=== PATIENT | female | born 1985 | race Caucasian/White ===

== ENCOUNTER 2021-03-25 13:16 | Observation (INO) | payer BC ==
[~2021-03-25] VITALS: Ht 160 cm; Wt 80.7 kg
[2021-03-25 13:17] VITALS: BP 121/79
== END 2021-03-25 17:10 | disposition home or self-care (01) ==
LOC: EDH 13:16 → LDH 13:17
PROVIDERS: ADMIT Specialist; ATTEND Specialist
DX: O42.92 Full-term premature rupture of membranes, unspecified as to length of time between rupture and onset of labor (principal); O62.9 Abnormality of forces of labor, unspecified; Z3A.36 36 weeks gestation of pregnancy
CPT/HCPCS: 59025; 76805; G0378 ×3

== ENCOUNTER 2021-04-07 03:52 | Inpatient (IN) | payer BC ==
[~2021-04-07] VITALS: Ht 160 cm; Wt 87.1 kg
[2021-04-07 04:32] LABS: APPEARANCE,URINE Cloudy (CLEAR); BILIRUBIN,URINE Negative (NEGATIVE); COLOR,URINE Yellow (YELLOW); GLUCOSE, URINE (UA) Negative (NEGATIVE); KETONES,URINE Negative (NEGATIVE); LEUKOCYTE ESTERASE ,URINE Moderate (NEGATIVE); NITRATE,URINE Negative (NEGATIVE); OCCULT BLOOD,URINE Trace (NEGATIVE); PH,URINE 7.5 (5.0-8.0); PROTEIN,URINE Negative (NEGATIVE)
[2021-04-07 04:50] LABS: BACTERIA,URINE None Seen /HPF (None Seen); RBC,URINE 0-1 /HPF (0-1)
[2021-04-07 04:51] LABS: AMORPHOUS SEDIMENT,UR Few /LPF (None Seen); SQUAMOUS EPITHELIAL CELL,UR Few /HPF (0-2)
[2021-04-07] MEDS ORDERED: OXYTOCIN-LR 20 UNITS/1000 ML 1,000 ML IV SCH ×3 (05:00→15:30)
[2021-04-07] MEDS ORDERED: LACTATED RINGERS 500 ML 500 ML IV PRN (05:00)
[2021-04-07] MEDS ORDERED: NALOXONE HCL 0.4 MG/1 ML ML IV PRN (05:00)
[2021-04-07] MEDS ORDERED: EPHEDRINE SULFATE 50 MG/ML AMPULE IVP PRN (05:00)
[2021-04-07] MEDS ORDERED: AMPICILLIN 2GM+NS 100ML 100 ML IV SCH (05:00)
[2021-04-07] MEDS ORDERED: LACTATED RINGERS 1000ML 1,000 ML IV PRN (05:00)
[2021-04-07 05:16] LABS: HEMATOCRIT 30.4 % (36-48); MEAN CORPUSCULAR HGB CONC 32.6 g/dL (32.0-36.0); MEAN CORPUSCULAR VOLUME 85.9 fL (79-99); RED BLOOD CELL COUNT(AUTO) 3.54 MIL/uL (4.00-5.50); RED CELL DISTRIBUTION WIDTH 13.3 % (11.0-15.5); WHITE BLOOD COUNT (AUTO) 11.6 K/uL (4.8-10.8)
[2021-04-07] MEDS: AMPICILLIN 1GM+NS 50ML 50 ML IV SCH ×2 (09:30→21:00)
[2021-04-07] MEDS ORDERED: ACETAMINOPHEN WITH CODEINE 1 TAB TAB PO PRN (15:30)
[2021-04-07] MEDS ORDERED: LANOLIN 30GM OINTMENT TP PRN (15:30)
[2021-04-07] MEDS ORDERED: BENZOCAINE/LANOLIN/ALOE VERA 60 ML AEROSOL TP PRN (15:30)
[2021-04-07] MEDS ORDERED: WITCH HAZEL 1 PAD TP PRN (15:30)
[2021-04-07] MEDS ORDERED: MEASLES/MUMPS/RUBELLA VACCINE, LIVE 0.5 ML/VIAL SQ PRN (15:30)
[2021-04-07] MEDS ORDERED: DIPH,PERTUSS(ACELL),TET VAC/PF 0.5 ML VIAL IM PRN (15:30)
[2021-04-07] MEDS ORDERED: ACETAMINOPHEN 325 MG TAB PO PRN (15:30)
[2021-04-07] MEDS: IBUPROFEN 600 MG TABLET PO PRN (16:44)
[2021-04-07 18:25] VITALS: BP 113/69
[2021-04-07 19:18] VITALS: BP 108/71
[2021-04-07] MEDS ORDERED: PNV1TABL57 PO (20:11)
[2021-04-07] MEDS ORDERED: SERT-440 PO (20:11)
[2021-04-07] MEDS: DOCUSATE SODIUM 100 MG CAP PO SCH (20:52)
[2021-04-07 23:00] VITALS: BP 121/65
[2021-04-08] MEDS: AMPICILLIN 1GM+NS 50ML 50 ML IV SCH ×2 (01:00→01:14)
[2021-04-08 03:20] VITALS: BP 110/65
[2021-04-08 08:00] VITALS: BP 124/79
[2021-04-08] MEDS: DOCUSATE SODIUM 100 MG CAP PO SCH (09:13)
[2021-04-08] MEDS: IBUPROFEN 600 MG TABLET PO PRN (09:14)
[2021-04-09 02:08] LABS: HEPATITIS Bs ANTIGEN SCREEN P Negative (Negative)
== END 2021-04-08 14:50 | disposition home or self-care (01) | DRG 807 ==
LOC: EDH 03:52 → LDH 04:04 → OBSVTOIN 04:04 → WSH 18:06
PROVIDERS: ADMIT Specialist; ATTEND Specialist
PROC: 10E0XZZ Delivery of Products of Conception, External Approach (ICD-10-PCS; principal; 2021-04-07)
PROC: 0HQ9XZZ Repair Perineum Skin, External Approach (ICD-10-PCS; 2021-04-07)
PROC: 3E0R3BZ Introduction of Anesthetic Agent into Spinal Canal, Percutaneous Approach (ICD-10-PCS; 2021-04-07)
PROC: 00HU33Z Insertion of Infusion Device into Spinal Canal, Percutaneous Approach (ICD-10-PCS; 2021-04-07)
PROC: 3E0234Z Introduction of Serum, Toxoid and Vaccine into Muscle, Percutaneous Approach (ICD-10-PCS; 2021-04-07)
DX: O69.82X0 Labor and delivery complicated by other cord entanglement, without compression, not applicable or unspecified (principal); Z37.0 Single live birth; O70.0 First degree perineal laceration during delivery; Z3A.37 37 weeks gestation of pregnancy; Z23 Encounter for immunization
CPT/HCPCS: 36415; 81001; 85027; 86592; 86850; 86900; 86901; 87088; 87340; 90715; A4314; A4351; G0378; J0290; J2590; J7120